=== PATIENT | male | born 2000 | race Caucasian/White ===

== ENCOUNTER 2025-06-28 15:54 | Emergency (ER) | payer BC, SELFPAY ==
[2025-06-28 15:57] VITALS: BP 124/79; PULSE 70; RESP 15; TEMP 36.8; O2SAT 98; BMI 28.8
--- NOTE | 2025-06-28 16:15 | EDS_ITS ---
HPI History of Present Illness Chief Complaint: Other, Pain/Inj Informant: patient Onset/Context/Timing Onset: Today Context: Sudden Onset Timing: Continuous Quality: Sharp, burning Location: Left side of the neck Worsened by: Turning his head to the left and looking up Relieved by: Nothing Narrative Narrative: Patient presents with neck pain that began today. Patient states that he woke up with pain in the left neck. Patient describes it as sharp and burning. Pat ient denies any trauma or injury. Patient denies any lifting or exertion yesterday. Patient states that his pain is worse when he turns his head to the left and when he looks up. Patient states nothing makes it better. Patient denies any radiation of the pain. Patient denies any paresthesias or weakness. Patient does admit to a mild headache. PFSH PFSH Medical History no medical history no medical history Home Medications ?Medication ?Instructions ?Recorded ?Last Taken ?Type cyclobenzaprine 10 mg tablet 10 mg PO QHS PRN PRN Musc le Spasm 06/28/25 Unknown Rx #10 TABLETS naproxen 500 mg tablet 500 mg PO BID PRN #20 tabs 0 06/28/25 Unknown Rx Allergy/AdvReac Type Severity Reaction Status Date / Time Penicillins Allergy Severe Anaphylaxis Verified 06/28/25 15:56 Surgical History no surgical history no surgical history Social History (Updated 06/28/25 @ 16:[address] Juan Juares, DO) Smoking Status: Current every day smoker tobacco type: cigarettes alcohol intake: current ROS ROS ED Constitutional Constitutional ED: Denies chills or fever(s) Eyes Eyes: Denies blurry vision or change in vision ENT ENT ED: Denies rhinorrhea or sore throat Cardiovascular Cardiovascular: Denies chest pain or palpitations Respiratory/Chest Respiratory/Chest: Denies cough or dyspnea Gastrointestinal Gastrointestinal: Denies nausea or vomiting Genitourinary Genitourinary ED: Denies dysuria or hematuria Musculoskeletal Musculoskeletal: Reports neck pain; Denies back pain Integumentary Denies abscess or rash Neurologic Neurologic: Reports headache(s); Denies weakness Allergic/Immunologic Allergic/Immunologic ED: Denies mouth swelling or urticaria EXAM Physical Exam Const Vital Signs: 06/28/25 15:57 06/28/25 17:06 Temperature 98.3 F Temperature Source Oral Pulse Rate 70 Respiratory Rate 15 Respiratory Effort Normal Respiratory Pattern Normal Blood Pressure 124/79 H Blood Pressure Mean 94 Pulse Ox 98 Oxygen Delivery Method Room Air Positive well nourished and well developed General Appearance ED: well developed and NAD HEENT Reports moist mucous membranes Neck Neck Narrative: There is tenderness and spasm left cervical paraspinal muscles. No midline pain. There is no no bony crepitus or step-off noted. Range of motion is limited in all motions of the cervical spine secondary to pain. General: tenderness Resp normal respiratory effort and clear to auscultation bilaterally Cardio regular rate and regular rhythm Neuro oriented x3, CN's II-XII intact bilaterally and no sensory deficits noted Sensorium / Orientation: alert Motor Exam: strength 5/5 throughout Psych mental status grossly normal MDM MDM MDM Narrative Medical decision making narrative: Differential includes torticollis, cervical strain, cervical radiculopathy, cervical spondylolisthesis. X-rays of the cervical spine will be obtained to assess for spondylolisthesis and degenerative arthritis. Radiography Diagnostic Testing: Clinical Impression(s) from Imaging Studies Cervical Spine X-Ray 06/28/25 17:20 IMPRESSION: NEGATIVE CERVICAL SPINE. Reading Location: [facility] X-rays of the cervical spine were obtained. There are 3 views. On my independent interpretation, there is no acute fracture or spondylolisthesis. There are no degenerative changes noted. Radiologist also interpreted the x- rays and agrees. Treatment and Re-Evaluation :: Patient was given a dose of [place] here. Patient was advised of this findings. Patient was given prescriptions for Naprosyn and Flexeril. Patient was instructed to use ice to the area. Patient was instructed to follow-up with his primary care physician in 5 to 7 days. Patient understood and was agreeable with the plan. All questions were answered. Discharge Plan Triage Chief Complaint: Other, Pain/Inj ED Provider: Juan Juares Dx/Rx/DC Orders Clinical Impression: Acute cervical myofascial strain, Tobacco use Instructions: ED Neck Sprain or Strain Prescriptions: New cyclobenzaprine 10 mg tablet 10 mg PO QHS PRN PRN (Reason: Muscle Spasm) Qty: 10 0RF naproxen 500 mg tablet 500 mg PO BID PRN Qty: 20 0RF Primary Care Provider: Care Physician,No Primary Referrals: Juan Spangler MD [Med Staff - [employer]] - 5-7 Days Care Physician,No Primary [Primary Care Provider] - Print Language: Amharic Disposition Disposition: Home, Self Care
[2025-06-28] MEDS: HYDROcodone Bitartrate/Apap 5/325 Tablet PO (17:00)
--- OUTSIDE RECORDS SUMMARY | 2025-06-28 17:13 | XMS RPT_ITS | CCD ---
Author Organization [facility] Care Team Providers Care Attending Urologist Name Role Phone RUTH KELLY Unavailable Unavailable MALENA MILLARD Unavailable Unavailable MIRANDA, KELLY Unavailable Unavailable LITKARIE DON Unavailable Unavailable MIRANDA, KELLY Unavailable Unavailable REFERRED, SELF Unavailable Unavailable MIRANDA, KELLY Unavailable Unavailable MIRANDA, KELLY Unavailable Unavailable KARINA SMITH Unavailable Unavailable LIONEL HODGE Unavailable Unavailable REFERRED, SELF Unavailable Unavailable MIRANDA, KELLY Unavailable Unavailable Unavailable Primary Care Provider Unavailabl e Unavailable Primary Care Provider Unavailabl e PHYSICIAN, PATIENT UNSURE Primary Care TYRONE Duran MD Attending Unavailable Unavailable Primary Care Provider Unavailabl e HEYDI, ELADIA Referring Unavailable HEYDI, ELADIA Referring Unavailable HEYDI, ELADIA Referring Unavailable Unavailable Primary Care Provider Unavailabl e SALGIA, SCOTT Referring Unavailable SALGIA, SCOTT Attending Unavailable [facility] Primary Care Unavailable RENETTA GREGORY Attending Unavailable Unavailable Primary Care Provider Unavailabl e Karina Sheriff Jr Attending Unavailable Karina Sheriff Jr Referring Unavailable Karina Sheriff Jr, DO Unavailable Unavailabl e Allergies Allergy Classification Reported Allergen(s) Allergy Type Date of Onset Reaction(s) Facility Penicillins (antibiotic) (1 source) Amoxicillin Drug Allergy 05-23-2024 [facility] (10 sources) amoxicillin; Translations: [AMOXICILLIN] Drug Allergy 06-13-2019 Bobby Quiros [facility] Repository Medications Current Medications Medication Drug Class(es) Dates Sig (Normalized) Sig (Original) ketorolac tromethamine 5 mg/ml ophthalmic solution (1 source) Nonsteroidal Anti-inflammatory Drug, Cyclooxygenase Inhibitor Start: 02-16-2025 take 1 drop(s) into the eye(s) four times daily ketorolac 0.5 % eye drops instill 1 drop by ophthalmic route 4 times every day into left eye 0.25 MG - Active ofloxacin 3 mg/ml ophthalmic solution (1 source) Quinolone Antimicrobial Start: 02-16-2025 take 1 drop(s) into the eye(s) four times daily Ocuflox 0.3 % eye drops apply 1 drop by ophthalmic route 4 times every day into left eye 1 drop - Active Completed/Discontinued Medications Medication Drug Class(es) Dates Sig (Normalized) Sig (Original) erythromycin 0.005 mg/mg ophthalmic ointment (4 sources) Macrolide, Macrolide Antimicrobial Start: 08-04-2021 End: 08-04-2021 erythromycin (ROMYCIN) ophthalmic ointment Start: 08-04-2021 End: 08-04-2021 erythromycin (ROMYCIN) 5 MG/ GM ophthalmic ointment Start: 08-04-2021 End: 08-14-2021 apply 1 dose into the eye(s) four times daily erythromycin (ROMYCIN) 5 MG/GM ophthalmic ointment Please apply 1/4inch strip to eye four times a day for 5 days to right eye 1 each 0 08/04/2021 08/14/2021 Active End: 02-16-2025 erythromycin 5 mg/gram (0.5 %) eye ointment apply (1CM) by ophthalmic route 3 times every day ribbon into the lower conjunctival sac(s) in the affected eye(s) 1 CM - No Longer Active 50 ml sodium chloride 9 mg/ml injection (2 sources) Start: 05-22-2024 End: 05-22-2024 1,000 mL, IntraVENous, at 1,000 mL/hr, Administer over 1 Hours, Once, On [facility] 05/22/24 at 2125, For 1 dose tetracaine hydrochloride 5 mg/ml ophthalmic solution (1 source) Padmini Local Anesthetic Start: 08-04-2021 End: 08-04-2021 tetracaine (TETRAVISC) 0.5 % ophthalmic solution 2 drop Problems Active Problems Problem Classification Problem Date Documented Da te Episodic/Chronic Acquired foot deformities (4 sources) Hallux valgus; Translations: [Hallux valgus (acquired), right foot] Onset: 06-16-2019 06-16-2019 Chronic Other injuries and conditions due to external causes (1 source) Foreign body in cornea, left eye, initial encounter; Translations: [Foreign body in cornea, left eye, initial encounter] Onset: 02-14-2025 Episodic Substance-related disorders (4 sources) Hallucinogen abuse; 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, uncomplicated] Onset: 05-22-2024 05-23-2024 Chronic Superficial injury; contusion (9 sources) Abrasion of cornea of right eye; Translations: [Injury of conjunctiva and corneal abrasion without foreign body, right eye, initial encounter] Onset: 05-07-2023 Episodic Past or Other Problems Problem Classification Problem Date Documented Da te Episodic/Chronic Acquired foot deformities (4 sources) Talipes planus; Translations: [Flat foot [pes planus] (acquired), unspecified foot] Onset: 06-16-2019 06-16-2019 Episodic Other connective tissue disease (3 sources) Muscle pain; Translations: [Myalgia, other site] Onset: 01-31-2024 01-31-2024 Episodic Other connective tissue disease (1 source) Myalgia, other site; Translations: [Myalgia, other site] Onset: 01-31-2024 Episodic Other non-traumatic joint disorders (4 sources) Sesamoiditis; Translations: [Other specified joint disorders, unspecified joint] Onset: 06-16-2019 06-16-2019 Episodic Spondylosis; intervertebral disc disorders; other back problems (8 sources) Neck pain; Translations: [Cervicalgia] Onset: 01-31-2024 01-31-2024 Episodic Unclassified (2 sources) Foreign body in cornea, left eye, initial encounter; Translations: [Foreign body in cornea, left eye, initial encounter] Onset: 02-16-2025 Unclassified (1 source) ER follow up foreign body (chief complaint) foreign body (chief complaint) Onset: 02-16-2025 Results Test Name Value Interpretation Reference Range Facility ED PROV NOTEon 02-14-2025 ED PROV NOTE HNO ID: [id number] Author: MERLY MCDONALD APRN.IRIS Service: ? Author Type: Nurse Practitioner Type: ED Provider Notes Filed: 02/15/2025 14:12 Note Text: ED Provider Note Patient Name: Augusto Rebolledo : 2000 SERVICE DATE: 02/14/25 History Patient presents with: Eye(s) Red Eye: Left eye redness starting yesterday, states excessive tearing. This is a 24-year-old male that presents emergency department with left eye irritation. Patient states it started approximately 2 days ago. He has conjunctival redness with frequent tearing. He now has some upper lid swelling. He denies any known foreign body. He denies recent cold symptoms. He does not wear glasses or contacts. 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 He has no other complaints today. No past medical history on file. No past surgical history on file. FAMILY HISTORY Problem Relation Age of Onset Hypertension Mother Arthritis Father Social History Tobacco Use Smoking status: Every Day Current packs/day: 0.50 Types: Cigarettes Smokeless tobacco: Never Vaping Use Vaping status: Never Used Substance and Sexual Activity Alcohol use: Not Currently Drug use: Not Currently Sexual activity: Yes ALLERGIES Allergen Reactions Amoxicillin Hives Review of Systems Constitutional: Negative. HENT: Negative. Eyes: Positive for discharge and redness. Respiratory: Negative. Cardiovascular: Negative. Musculoskeletal: Negative. Skin: Negative. Neurological: Negative. Physical Exam Vitals [02/14/25 1911] BP Pulse Temp Temp src Resp SpO2 Weight Height 122/75 83 36.7 ?C (98.1 ?F) Temporal 16 98 % 86.2 kg (190 lb) -- Physical Exam Vitals and nursing note reviewed. Constitutional: Appearance: Normal appearance. HENT: Head: Normocephalic and atraumatic. Eyes: General: Left eye: Discharge present. Extraocular Movements: Extraocular movements intact. Pupils: Pupils are equal, round, and reactive to light. Comments: Left eye conjunctival erythema, minor upper lid edema. Punctate metal fb at 3 o'clock. Cardiovascular: Rate and Rhythm: Normal rate. Pulmonary: Effort: Pulmonary effort is normal. Musculoskeletal: General: Normal range of motion. Skin: General: Skin is warm and dry. Capillary Refill: Capillary refill takes less than 2 seconds. Neurological: General: No focal deficit present. Mental Status: He is alert and oriented to person, place, and time. Diagnostic Testing ED Labs Ordered and Reviewed - No data to display Procedures ED Course / Clinical Impression Clinical Impressions as of 02/15/25 1404 Foreign body in cornea, left eye, initial encounter MDM / Disposition / Plan Patient presents with left eye irritation. He is in no acute distress. Vital signs unremarkable. Pupils equal round reactive to light and accommodation. Lt conjunctiva erythematous. Extraocular movements intact. Minor upper lid swelling on the left. Punctate metal foreign body at 3:00. Clear drainage on the left. Exam otherwise unremarkable. Tetracaine and fluorescein utilized to exam the eye. Patient did not tolerate exam well unrelated to pain. Attempted cotton swab removal of foreign object without success. Patient started on erythromycin ointment. He was advised on follow-up on Sunday with ophthalmology for removal and reevaluation. Patient was advised on return precautions. Patient was discharged home. Impression left corneal foreign body. Differential Diagnoses - left corneal fb is more likely for the following reason(s): suggested by HANDP Disposition The patient was discharged. Counseled patient regarding suspected diagnosis. SIGNATURE: Merly Mcdonald APRN.ORACLE SOFTWARE ENGINEER - MERLY MCDONALD 02/15/25 1412 Normal [facility] ED Nursing Noteon 05-23-2024 ED Nursing Note Patient AXO x 4. Res pirations even and unlabored. No acute distress noted. Verbalized understanding of discharge paperwork. Steady gait with ambulation. Discharged with girlfriend. Yvette Dee RN 05/23/24 0106 Normal [facility] ED Nursing Note Patient awake and ta lking to this nurse. Provided gowns. Patient ambulatory to restroom with steady gait. Yvette Dee RN 05/23/24 0003 Normal [facility] ED Nursing Noteon 05-22-2024 ED Nursing Note Patient incontinent of urine again. This RN and Rosy, medic at bedside to change patient. Patient clean and dry. Patient will not remain still to obtain BP. Yvette Dee RN 05/22/24 2317 Normal [facility] ED Nursing Note Patient respirations even and unlabored. No acute distress noted. Side rails up x2 for safety. Visitor at bedside. Yvette Dee RN 05/22/24 3567 Normal [facility] ED Nursing Note Patient pulled IV ou t. Yvette Dee RN 05/22/24 2243 [facility] ED Nursing Note Patient continues to roll around in bed, removing self from monitor and bending arm. IVF unable to infuse d/t patient bending arm. Dr. Ortiz notified. Yvette Dee RN 05/22/24 2241 Normal [facility] ED Nursing Note Patient incontinent of urine. Patient changed into gown and complete bed change done. Yvette Dee RN 05/22/24 2230 Normal [facility] ED Nursing Note Dr. Guzman at bedside. Yvette Dee RN 05/22/24 2133 Normal [facility] ED Provider Noteon ED Provider Note EMERGENCY DEPARTMENT ENCOUNTER Pt Name: Augusto Rebolledo Birthdate 2000 Date of evaluation: 05/22/2024 ED Provider: Dinora Ortiz MD CHIEF COMPLAINT Chief Complaint Patient presents with Ingestion Pt sts I feel like I'm going to . Pt sts nothing else and does not respond to stimuli. Girlfriend sts pt took edible mushrooms, ukn how much, approx 1hr ago. HISTORY OF PRESENT ILLNESS (Location/Symptom, Timing/Onset, Context/Setting, Quality, Duration, Modifying Factors, Severity) Note limiting factors. I wore appropriate PPE for the entirety of this encounter. HPI Augusto Rebolledo is a 23 y.o. who presents to the emergency department after eating edible mushrooms. Triage note, patient stated I think I am going to he entered the emergency department. Patient is no longer speaking or responding to stimuli, therefore unable to obtain any further history. Girlfriend is at bedside and states that the mushrooms were likely ingested approximately an hour to an hour and a half prior to arrival. She does not know how much she states she was not there when he ingested, however she notes he ingested prior to picking her up for dinner. Nursing Notes were reviewed. Limitations to history: Intoxication Outside historians: None REVIEW OF SYSTEMS Review of Systems Unable to perform ROS: Other (intoxication, not participating) PAST MEDICAL HISTORY History reviewed. No pertinent past medical history. SURGICAL HISTORY History reviewed. No pertinent surgical history. CURRENT MEDICATIONS Previous Medications No medications on file ALLERGIES Patient has no allergy information on record. FAMILY HISTORY Family History Problem Relation Name Age of Onset No Known Problems Father No Known Problems Mother SOCIAL HISTORY Social History Socioeconomic History Marital status: Single Tobacco Use Smoking status: Never Smokeless tobacco: Never Substance and Sexual Activity Alcohol use: Never SCREENINGS PHYSICAL EXAM ED Triage Vitals [05/22/24 2103] Temp Heart Rate Resp BP 36.8 ?C (98.2 ?F) 110 22 (!) 175/95 SpO2 Temp Source Heart Rate Source Patient Position 100 % Axillary Monitor Lying BP Location FiO2 (%) Right arm -- Physical Exam Vitals and nursing note reviewed. Constitutional: Comments: Staring into space, not responding to stimuli HENT: Head: Normocephalic and atraumatic. Nose: Nose normal. Mouth/Throat: Mouth: Mucous membranes are moist. Eyes: Extraocular Movements: Extraocular movements intact. Conjunctiva/sclera: Conjunctivae normal. Right eye: Right conjunctiva is not injected. Left eye: Left conjunctiva is not injected. Comments: Pupils dilated bilaterally Cardiovascular: Rate and Rhythm: Regular rhythm. Tachycardia present. Heart sounds: Normal heart sounds. Pulmonary: Effort: Pulmonary effort is normal. Breath sounds: Normal breath sounds. Abdominal: Palpations: Abdomen is soft. Musculoskeletal: General: Normal range of motion. Cervical back: Normal range of motion. Skin: General: Skin is warm. Neurological: General: No focal deficit present. Mental Status: He is alert. Comments: Unable to fully test neurological status as patient is not responding to stimuli or following commands; he is moving all 4 extremities equally. DIAGNOSTIC RESULTS RADIOLOGY (Per Emergency Physician): Interpretation per the Radiologist below, if available at the time of this note: No orders to display LABS: Labs Reviewed POCT GLUCOSE METER UNSOLICITED RESULTS - Normal Result Value Glucose 96 Narrative: Performed by: [facility], [address] [place] [address] CLIA ID: [id number] All other labs were within normal range or not returned as of this dictation. EMERGENCY DEPARTMENT COURSE and DIFFERENTIAL DIAGNOSIS/MDM: Vitals: Vitals: 05/22/24 2103 05/22/24 2317 BP: (!) 175/95 BP Location: Right arm Patient Position: Lying Pulse: 110 94 Resp: 22 18 Temp: 36.8 ?C (98.2 ?F) TempSrc: Axillary SpO2: 100% 100% Weight: 93 kg (205 lb) Height: 1.854 m (6' 1) The patient presented with a chief complaint of mushroom ingestion. POCT glucose obtained due to altered mental status. Was 96. Attempted to give patient IV fluids, however his altered state he was continuing to pull out his IV. Patient was observed in the emergency department for 3 and half hours. He woke up, ambulated to the restroom, tolerated p.o., and is back at baseline mental status. Patient is safe for discharge at this time. Return precautions given to the ED. He expressed understanding and agreement was discharged in stable condition. External records reviewed: none Diagnostics interpreted by me: none Discussions with other clinicians: none Chronic conditions impacting care: none Social determinants of health affecting care: none ED Medications managed: Medications sodium chloride 0.9 % b (more content not included)... [facility] ED Provider Note Emergency Department Encounter [facility] EMERGENCY DEPT Patient: Augusto Rebolledo : 2000 Date of Evaluation: 05/22/2024 ED Supervising Physician: Renetta Gregory MD I independently examined and evaluated Augusto Rebolledo. In brief, Augusto Rebolledo is a 23 y.o. male with unknown past medical history that presents to the emergency department for evaluation for bizarre behavior. According to girlfriend who is at bedside patient reported taking mushrooms earlier in the evening. She states that the patient increasingly became lethargic and sleepy. She states the result she brought him to the emergency department for evaluation. Girlfriend states she is not there when he ingested the mushrooms. She notes that he came to be To go out after dinner and was intoxicated. Patient states he does not remember what happened to him. He however denies chest pain, shortness of breath, abdominal pain or nausea and vomiting. Patient is hard to arouse and rouses to sternal rubs. When patient however rouses is able to communicate coherently and is alert and oriented x 4. ED Triage Vitals [05/22/242102] Temp Heart Rate Resp BP 36.8 ?C (98.2 ?F) 110 22 (!) 175/95 SpO2 Temp Source Heart Rate Source Patient Position 100 % Axillary Monitor Lying BP Location FiO2 (%) Right arm -- Focused exam: [id number] in no acute distress. Patient drowsy and hard to arouse but when he arouses he is alert and oriented X 3. Lungs clear to auscultation bilaterally with no wheezes or crackles appreciated. Heart rate and rhythm regular with no murmurs. Abdomen soft nontender nondistended with positive bowel sounds. No edema appreciated on the lower extremities bilaterally. Patient with no suicidal or homicidal ideation. Brief ED course/MDM: No orders to display Labs Reviewed POCT GLUCOSE METER UNSOLICITED RESULTS - Normal Result Value Glucose 96 Narrative: Performed by: [facility], [address] [place], [place] [id number] CLIA ID: [id number] Diagnoses as of 05/23/24 0435 Hallucinogenic mushrooms use disorder, mild (CMS/HCC) (HCC) Patient presenting for evaluation for increased drowsiness after allegedly consuming mushrooms. Given presentation patient received IV fluids in the department. Patient with no hypoglycemia. Patient observed in the department for 4 hours. Apparently for 4 hours patient fully awake alert and oriented. Able to state that he took hallucinogenic mushrooms. Denies any other substance abuse. Patient with no hypoxia. Ambulates without difficulty. Discussed with patient discharge home. Patient with sober ride as girlfriend is still at bedside. Discharged in stable condition for patient follow-up. All diagnostic, treatment, and disposition decisions were made by myself in conjunction with the Resident. I also supervised lopez portions of any procedures performed by the Resident. For all further details of the patient's emergency department visit, please see their documentation. (Please note that portions of this note may have been completed with a voice recognition program. Efforts were made to edit the dictations but occasionally words are mis-transcribed.) MD Renetta Curtis MD 05/23/24 0442 Normal [facility] - Chemistry and C hemistry - challengeon 05-22-2024 Glucose [Mass/Vol] 96 mg/dL 70 - 100 mg/dL [facility] No Panel Informationon 05-22 Interpretation and review of laboratory results Normal [facility] Performed by: [facility], [address] [place] [id number] CLIA ID: [id number] [facility] CNOVon 05-17-2023 CNOV Office Visit (CCWRNC ) AUGUSTO REBOLLEDO ([id number]) 1 M Date Time Provider Department 05/17/23 4:00 PM [facility] During your visit today, we recorded the following information about you: Referring Provider: ELADIA SOLIZ [[id number]] Allergies As of Date: 05/17/2023 Noted Allergy Reaction AMOXICILLIN 06/13/2019 4 - Hives Date Reviewed: 03/11/2023 Reviewed by: Wes Vega RN - Fully Assessed Reason for Visit: Fall [218] Primary Visit Diagnosis:Contusion of right front wall of thorax, initial encounter [S20.211A] Other Visit Diagnoses:Contusion of right knee, initial encounter [S80.01XA] Contusion of right hip, initial encounter [S70.01XA] Problem List As Of Date 05/17/2023 Noted Resolved Sesamoiditis [M25.80] 06/16/2019 Valgus deformity of both great toes [M20.11, M2*06/16/2019 Flat foot [M21.40] 06/16/2019 Encounter Status:Closed by ROB ROCHE on 07/11/23 [facility] 05[facility]2023 CN Office Visit (CCWRNC ) AUGUSTO REBOLLEDO ([id number]) 1 M Date Time Provider Department 05/07/23 11:30 AM [facility] During your visit today, we recorded the following information about you: Referring Provider: ELADIA SOLIZ [[id number]] Allergies As of Date: 05/07/2023 Noted Allergy Reaction AMOXICILLIN 06/13/2019 4 - Hives Date Reviewed: 03/11/2023 Reviewed by: Wes Vega RN - Fully Assessed Reason for Visit: Knee Pain [132] Pain [78] Primary Visit Diagnosis:Contusion of front wall of thorax, initial encounter [S20.219A] Other Visit Diagnoses:Contusion of right front wall of thorax, initial encounter [S20.211A] Contusion of right knee, initial encounter [S80.01XA] Contusion of right hip, initial encounter [S70.01XA] Order(s):XR RIBS/CHEST 3V AP RIB/OBLS/CXR RIGHT [[id number]] Order #: [id number] FUTURE Problem List As Of Date 05/07/2023 Noted Resolved Sesamoiditis [M25.80] 06/16/2019 Valgus deformity of both great toes [M20.11, M2*06/16/2019 Flat foot [M21.40] 06/16/2019 Encounter Status:Closed by RODGER RAY on 07/25/23 [facility] XR RIB/CHST 3V AP RIB/OBL/CH ST Dash 05-07-2023 XR RIB/CHST 3V AP RIB/OBL/CHST R * * *Final Report* * * DATE OF EXAM: May 07 2023 12:27PM [id number] [id number] - XR RIB/CHST 3V AP RIB/OBL/CHST R / PROCEDURE REASON: Contusion of front wall of thorax, initial encounter * * * * Physician Interpretation * * * * XR RIB/CHST 3V AP RIB/OBL/CHST R Ordering Physician: ELADIA SOLIZ RIGHT RIB SERIES 5 VIEWS Clinical Statement: Contusion of right pneumothorax, initial encounter. FINDINGS: No pneumothorax. No rib fractures. The osseous structures are intact. IMPRESSION: No acute osseous abnormality. Metalsmith Apprentice: [facility] Transcribe Date/Time: May 07 2023 1:09P Dictated by : MARY CALVO MD This examination was interpreted and the report reviewed and electronically signed by: MARY CALVO MD on May 07 2023 1:10PM EST [id number] [facility] XR RIBS/CHEST 3V AP RIB/OBLS /CXR RIGHTon 05-07-2023 [facility] XR Ribs - right Views and Ch est PAon 05-07-2023 IMPRESSION: No acute osseous abnormality. Metalsmith Apprentice: [facility] Transcribe Date/Time: May 07 2023 1:09P Dictated by : MARY CALVO MD This examination was interpreted and the report reviewed and electronically signed by: MARY CALVO MD on May 07 2023 1:10PM EST [facility] RADIOLOGY * * *Final Report* * * DATE OF EXAM: May 07 2023 12:27PM [id number] [id number] - XR RIB/CHST 3V AP RIB/OBL/CHST R / PROCEDURE REASON: Contusion of front wall of thorax, initial encounter * * * * Physician Interpretation * * * * XR RIB/CHST 3V AP RIB/OBL/CHST R Ordering Physician: ELADIA SOLIZ RIGHT RIB SERIES 5 VIEWS Clinical Statement: Contusion of right pneumothorax, initial encounter. FINDINGS: No pneumothorax. No rib fractures. The osseous structures are intact. [facility] RADIOLOGY Provider, Deonte [facility] - 05/07/2023 * * *Final Report* * * DATE OF EXAM: May 07 2023 12:27PM RNX [id number] - XR RIB/CHST 3V AP RIB/OBL/CHST R / PROCEDURE REASON: Contusion of front wall of thorax, initial encounter * * * * Physician Interpretation * * * * XR RIB/CHST 3V AP RIB/OBL/CHST R Ordering Physician: ELADIA SOLIZ RIGHT RIB SERIES 5 VIEWS Clinical Statement: Contusion of right pneumothorax, initial encounter. FINDINGS: No pneumothorax. No rib fractures. The osseous structures are intact. IMPRESSION IMPRESSION: No acute osseous abnormality. Metalsmith Apprentice[facility] Transcribe Date/Time: May 07 2023 1:09P Dictated by : MARY CALVO MD This examination was interpreted and the report reviewed and electronically signed by: MARY CALVO MD on May 07 2023 1:10PM EST [facility] Radiology Study observation (narrative) [facility] XR Ribs - right Views and Ch est PAOrdered By: [facility] Provider on 05-07-2023 [facility] [facility] .Auto Diffon 05-02-2023 Basophil, Absolute 0.0 10 3/mcL Normal 0.0-0.3 [facility] ([place]) Comment on above: Performed By: #### ALC, CBCFAUSTINA ANEU, MDW ####[address] [address] Basophils/100 WBC (Bld) 0.2 % Normal 0.0-2.5 [facility] ([place]) Comment on above: Performed By: #### ALC, CBC, WALTER WEEMS MDW ####[address] [address] Eosinophil, Absolute 0.1 10 3/mcL Normal 0.0-0.7 [facility] ([place]) Comment on above: Performed By: #### ALC, CBCFAUSTINA ANEU, MDW ####[address] [address] Eosinophils/100 WBC (Bld) 0.6 % Normal 0.0-6.0 [facility] ([place]) Comment on above: Performed By: #### ALC, CBCFAUSTINA ANEU, MDW ####[address] [address] Lymphocyte, Absolute 1.3 10 3/mcL Normal 0.9-4.3 [facility] ([place]) Comment on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 swelling.ProceduresMDMED Course:Diagnosis' considered: right foot and ankle injury, fracture vs contusion vsstrain,Labs/Radiology:X-Ray Ankle 3 or More Views RightFinal ResultImpression:Right foot: 3 views of the right foot demonstrate no evidence of fracture ordislocation. Thefirst metatarsal medial sesamoid bone is bipartite, normal variant.Right ankle: 3 views demonstrate soft tissue swelling greatest laterally. Themortise isintact. No evidence of fracture, dislocation, or osteochondritis dissecans. Thecorticalirregularity of the superior navicular is felt to be normal variation.This report has been created using voice recognition software. It may containminor errorswhich are inherent in voice recognition technologyX-Ray Foot 3 or More Views RightFinal ResultImpression:Right foot: 3 views of the right foot demonstrate no evidence of fracture ordislocation. Thefirst metatarsal medial sesamoid bone is bipartite, normal variant.Right ankle: 3 views demonstrate soft tissue swelling greatest laterally. Themortise isintact. No evidence of fracture, dislocation, or osteochondritis dissecans. Thecorticalirregularity of the superior navicular is felt to be normal variation.This report has been created using voice recognition software. It may containminor errorswhich are inherent in voice recognition technologyTreatment/Reassessment : Ibuprofen given for pain , Reviewed above noted xrayresults with family. pneumatic boot applied Reviewed supportive measures,expected course and s/s of concern with parent. Parent verbalized understandingof instructions and all questions were answered. F/U with PCP in 5 days if notimprovedDiagnosis to highest level of medical certainty/plan1. Injury of right ankle and foot, initial encounter Normal [facility] FOOT 3 OR MORE VIEWS RIGHTon 10-27-2017 FOOT 3 OR MORE VIEWS RIGHT Clinical history: Injury. Pain.Impression:Right foot: 3 views of the right foot demonstrate no evidence of fracture ordislocation. The first metatarsal medial sesamoid bone is bipartite, normalvariant.Right ankle: 3 views demonstrate soft tissue swelling greatest laterally. Themortise is intact. No evidence of fracture, dislocation, or osteochondritisdissecans. The cortical irregularity of the superior navicular is felt to benormal variation.This report has been created using voice recognition software. It may containminor errors which are inherent in voice recognition technologySigned by: Dr. 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 No known inciting event. Patient has pain with walking and also has apopping sensation when walking long distances. No numbness or tingling. No priorinjuries.Has not continued to practice since it happened.Icing and swelling improved.No medications today.The history is provided by the patient and a parent.Review of SystemsConstitutional: Negative for fever.HENT: Negative for congestion and rhinorrhea.Respiratory: Negative for cough.Gastrointestinal: Negative for vomiting.Musculoskeletal: Positive for arthralgias and gait problem.Skin: Negative for rash.Past Medical History:Diagnosis Date ADHD (attention deficit hyperactivity disorder)History reviewed. No pertinent surgical history.Pediatric HistoryPatient Guardian Status Mother: Shelton Rebolledo Roger Father: GopiEladia IIOther Topics Concern Not on fileSocial History NarrativePhysical ExamConstitutional: He appears well-developed and well-nourished. No distress.HENT:Mouth/Throat: Oropharynx is clear and moist. No oropharyngeal exudate.Eyes: Conjunctivae are normal. Pupils are equal, round, and reactive to light.Neck: Neck supple.Cardiovascular: Normal rate.Pulmonary/Chest: Effort normal and breath sounds normal.Musculoskeletal: Right knee: He exhibits decreased range of motion (prefers to keep knee inslightly flexed position. (Can flex but painful to fully extend)). He exhibitsno swelling, no ecchymosis, no deformity, no laceration and no erythema.Tenderness (medial side of knee) found. Right ankle: He exhibits normal range of motion. No tenderness.Neurological: He is alert.Skin: Skin is warm. He is not diaphoretic.Nursing note and vitals reviewed.ProceduresMDMED Course:Diagnosis' considered: sprain, contusion, fractureLabs/Radiology:X-Ray Knee 3 Views RightFinal ResultIMPRESSION:Normal radiographic examination of the knee.This report has been created using voice recognition software. It may containminor errorswhich are inherent in voice recognition technologyConsults: No orders of the defined types were placed in this encounter.Medical Record/Transferring Institution Record:Treatment/Reassessment: Non toxic appearing. Dose of motrin given for pain.Xrays obtained and unremarkable. Advised to continue to rest, ice, elevate andcompress with DIAZ bandage. Advised to use crutches (have at home) for next fewdays up to one week as well. Follow up with orthopedics if pain continues to bepresent despite using crutches and RICE. At-home management instructions given.Family expressed understanding of home management instructions and returnprecautions. Discharged home in stable condition.Medical Decision MakingDiagnosis to highest level of medical certainty/plan1. Acute pain of right knee Malena Millard MD Normal [facility] KNEE 3 VIEWS RIGHTon 017 KNEE 3 VIEWS RIGHT CLINICAL HISTORY: pain medially and over inferior patella poleTECHNIQUE: Three views of the right knee.NUMBER OF IMAGES: 3COMPARISON: NoneFINDINGS:There is no visible fracture or other osseous abnormality. Alignment is normal.There is no visible joint effusion or other soft tissue abnormality.IMPRESSION:Normal radiographic examination of the knee.This report has been created using voice recognition software. It may containminor errors which are inherent in voice recognition technologySigned by: Dr. Stefan Dong at 08/24/2017 12:19 Normal [facility] Vital Signs Date Time Vital Sign Value Performing Clinician Markus farris 05-23-2024 01:02-0400 Diastolic blood pressure 77 mm[Hg] Renetta Gregory MD Work Phone: [facility] 05-23-2024 01:02-0400 Heart rate 73 /min Renetta Gregory MD Work Phone: [facility] 05-23-2024 01:02-0400 Respiratory rate 18 /min Renetta Gregory MD Work Phone: [facility] 05-23-2024 01:02-0400 SaO2% (BldA) [Mass fraction] 98 % Renetta Gregory MD Work Phone: [facility] 05-23-2024 01:02-0400 Systolic blood pressure 138 mm[Hg] Renetta Gregory MD Work Phone: [facility] 05-23-2024 01:00-0400 Body height 180.3 cm Renetta Gregory MD Work Phone: [facility] [employer] 05-23-2024 01:00-0400 Body mass index (BMI) [Ratio] 28.59 kg/m2 Renetta Gregory MD Work Phone: [facility] 05-23-2024 01:00-0400 Body weight 92.99 kg Renetta Gregory MD Work Phone: [facility] [employer] 05-22-2024 21:03-0400 Body temperature 98.2 [degF] Renetta Gregory MD Work Phone: [facility] [employer] 08-04-2021 20:22-0400 Body temperature 97.11 [degF] [facility] Work Phone: 08-04-2021 20:22-0400 Body weight 86.18 kg [employer] Work Phone: 08-04-2021 20:22-0400 Diastolic blood pressure 82 mm[Hg] [employer] Work Phone: 08-04-2021 20:22-0400 Heart rate 88 /min [employer] Work Phone: 08-04-2021 20:22-0400 Respiratory rate 16 /min [employer] Work Phone: 08-04-2021 20:22-0400 SaO2% (BldA) [Mass fraction] 100 % [facility] Work Phone: 08-04-2021 20:22-0400 Systolic blood pressure 130 mm[Hg] [employer] Work Phone: Encounters Encounter Date Encounter Type Care Provider Facility Start: 02-16-2025 End: 02-16-2025 Karina Sheriff Jr Work Phone: [facility] [place] Start: 02-16-2025 ambulatory Karina Sheriff Jr [facility] Start: 02-14-2025 End: 02-14-2025 Emergency department patient visit Facility:[facility] Start: 05-22-2024 End: 05-23-2024 Emergency department patient visit Renetta Gregory MD Work Phone: [facility] Comment on above: Hallucinogenic mushr ooms use disorder, mild (CMS/HCC) (HCC) (Primary Dx) Start: 01-31-2024 End: 01-31-2024 Subsequent hospital visit by physician Scott Oquendo Work Phone: [address] X-ray Comment on above: Cervicalgia; Pain in thoracic spine; Myalgia, other site Start: 01-31-2024 End: 01-31-2024 ambulatory SCOTT OQUENDO [facility] Start: 05-17-2023 End: 05-17-2023 ambulatory ELADIA SOLIZ Facility:[id number] Start: 05-17-2023 End: 05-17-2023 [facility] Comment on above: Contusion of right f ront wall of thorax, initial encounter (Primary Dx); Contusion of right knee, initial encounter; Contusion of right hip, initial encounter Start: 05-07-2023 End: 05-07-2023 ambulatory ELADIA SOLIZ Facility:[id number] Start: 05-07-2023 End: 05-07-2023 Subsequent hospital visit by physician Xr [facility] Work Phone: [facility] Comment on above: Contusion of front w all of thorax, initial encounter [S20.219A] Start: 05-07-2023 End: 05-07-2023 Patient encounter procedure [facility] Comment on above: Contusion of front w all of thorax, initial encounter (Primary Dx); Contusion of right front wall of thorax, initial encounter; Contusion of right knee, initial encounter; Contusion of right hip, initial encounter Start: 05-02-2023 End: 05-02-2023 Emergency department patient visit PATIENT UNSURE PHYSICIAN Facility:A Start: 10-09-2021 Patient encounter procedure Juarez Storm MD Work Phone: [facility] Start: 10-09-2021 Progress Note Juarez Storm MD Work Phone: [facility] Start: 08-04-2021 End: 08-04-2021 Emergency department patient visit [facility] Comment on above: Abrasion of right co rnea, initial encounter (Primary Dx) Start: 06-03-2018 Patient encounter LIONEL HODGE [facility] Start: 06-03-2018 End: 06-03-2018 Emergency department patient visit KELLY [facility] Start: 11-26-2017 End: 11-26-2017 Patient encounter KELLY [facility] Start: 10-27-2017 End: 10-27-2017 Emergency department patient visit KELLY MIRANDA [facility] Start: 08-24-2017 End: 08-24-2017 Emergency department patient visit KELLY [facility] Procedures Date Procedure Procedure Detail Performing Clinician Start: 02-16-2025 End: 02-16-2025 Rmvl fb xtrnl eye corneal w/slit lamp Karina Sheriff Jr Start: 05-22-2024 Glucose quantitative blood xcpt reagent strip Renetta Gregory MD Work Phone: Start: 05-07-2023 Radex ribs uni w/posteroant ch minimum 3 views Eladia Soliz PA-C Work Phone: Plan of Treatment Date Care Activity Detail Author Start: 2060 RSV Immunization age d 60 or older (1 - 1-dose 60+ series) RSV Immunization aged 60 or older (1 - 1-dose 60+ series) [facility] Start: 2050 Zoster Vaccines (1 of 2) Zoste r Vaccines (1 of 2) [facility] Start: 02-16-2025 Counseling about tob acco use Tobacco cessation counseling [facility] Start: 07-20-2024 Covid-19 Vaccine ( season) Covid-19 Vaccine ( season) [facility] Start: 07-20-2024 Influenza vaccination Influenza Vacc ine (#1) [facility] Start: 08-25-2023 DTaP/Tdap/Td Vaccine s (7 - Td or Tdap) DTaP/Tdap/Td Vaccines (7 - Td or Tdap) [facility] Start: 08-25-2023 Urine microalbumin profile DTaP,Tdap,Td Vaccine (7 - Td or Tdap) [facility] Start: 07-20-2023 COVID-19 Vaccine ( season) COVID-19 Vaccine ( season) [facility] Start: 07-20-2023 Influenza vaccination [facility] Start: 11-19-2022 DEPRESSION ASSESSMENT DEPRESSION ASS ESSMENT [facility] Start: 07-20-2022 Influenza vaccination INFLUENZ A (Season Ended) [facility] Start: 07-20-2021 Influenza vaccination Flu vaccine (# 1) [facility] Work Phone: Start: 2019 Hepatitis A Vaccines (1 of 2 - Risk 2-dose series) Hepatitis A Vaccines (1 of 2 - Risk 2-dose series) [facility] Start: 2019 Urine microalbumin profile DTAP,TDAP,TD (1 - Tdap) [facility] Start: 2018 Anxiety Screening Anxiety Screening [facility] Start: 2018 Depression Screening Depression Scre ening [facility] Start: 2018 HEPATITIS C [facility]CRE[facility] Start: 2018 Hepatitis C screening Hepatitis C [facility] Start: 2018 HIV SCREENING HIV SCREENING [facility] Start: 2018 HIV screening HIV Screening [facility] Start: 2016 Meningococcal B Vacc ine: Consider Based On Risk (1 of 2 - Patient Seeks Protection) Meningococcal B Vaccine: Consider Based On Risk (1 of 2 - Patient Seeks Protection) [facility] Start: 2016 MENINGOCOCCAL B: Consider based on risk (1 of 2 - Patient Seeks Protection) MENINGOCOCCAL B: Consider based on risk (1 of 2 - Patient Seeks Protection) [facility] Start: 2015 HPV Vaccine (1 - Mal e 3-dose series) HPV Vaccine (1 - Male 3-dose series) [facility] Start: 2015 HPV Vaccines (1 - Ma le 3-dose series) HPV Vaccines (1 - Male 3-dose series) [facility] Start: 2014 PEDS TO ADULT TRANSI TION ANNUAL ASSESSMENT PEDS TO ADULT TRANSITION ANNUAL ASSESSMENT [facility] Start: 2012 Adult depression screening assessment DEPRESSION SCREENING [facility] Start: 2012 COVID-19 Vaccine (1) COVID-19 Vaccin e (1) [facility] Work Phone: Start: 2012 PEDS TO ADULT TRANSI TION INITIAL DISCUSSION PEDS TO ADULT TRANSITION INITIAL DISCUSSION [facility] Start: 2011 HPV VACCINE (1 - Mal e 2-dose series) HPV VACCINE (1 - Male 2-dose series) [facility] Start: 2011 HPV Vaccines (1 - Ma le 2-dose series) HPV Vaccines (1 - Male 2-dose series) [facility] Start: 2009 HPV VACCINE (1 - Mal e 2-dose series) HPV VACCINE (1 - Male 2-dose series) [facility] Start: 2006 PNEUMOCOCCAL (1 - PCV) PNEUMOCOCCAL (1 - PCV) [facility] Start: 2006 Pneumococcal vaccination Pneum ococcal Vaccine (1 of 2 - PCV) [facility] Start: 2006 Pneumococcal Vaccine : Pediatrics (0 to 5 Years) and At-Risk Patients (6 to 64 Years) (1 of 2 - PCV) Pneumococcal Vaccine: Pediatrics (0 to 5 Years) and At-Risk Patients (6 to 64 Years) (1 of 2 - PCV) [facility] Start: 04-20-2006 Varicella vaccination Varicell a Vaccines (2 of 2 - 2-dose childhood series) [facility] Start: 2005 COVID-19 VACCINE (#1) COVID-19 VACCI NE (#1) [facility] Start: 06-06-2001 COVID-19 VACCINE (#1) COVID-19 VACCI NE (#1) [facility] Start: 2000 HEPATITIS B (1 of 3 - 3-dose series) HEPATITIS B (1 of 3 - 3-dose series) [facility] Start: 2000 HIV screening HIV Screening [facility] Start: 2000 Lipid panel Lipid Panel [facility] OUTSIDE PROCEDURE SCAN OUTSIDE P ROCEDURE SCAN Procedures Ordered: 01/31/2024 [facility] Comment on above: Ordered: 01/31/2024 End: 01-31-2024 XR Cervical spine 4 or 5 Views [facility] Comment on above: Once for 1 Occurrenc es starting 01/31/2024 until 01/31/2024 End: 01-31-2024 XR Thoracic spine 3 Views [facility] Work Phone: Comment on above: Once for 1 Occurrenc es starting 01/31/2024 until 01/31/2024 Immunizations Immunization Date Immunization Notes Care Provider Tina iverson 03-20-2002 varicella virus vaccine Scott Phong Work Phone: [facility] Payers Date Payer Category Payer Unknown [id number] 2023 Unknown [id number] 2023 Unknown [id number] 2023 Unknown [id number] 2022 Unknown [id number] 2022 Unknown [id number] 2000 Unknown [id number] 2000 Unknown [id number] Private Health Insurance [id number] Social History Date Type Detail Facility Tobacco smoking stat [facility] Unknown if ever smoked [facility] Work Phone: Start: 2000 Sex Assigned At Not on file S [employer] Work Phone: Start: 03-22-2022 End: 04-01-2022 Exposure to SARS-CoV-2 (event) Not sure [facility] Start: 06-13-2019 End: 05-23-2024 Tobacco smoking status [facility] Smokes tobacco daily [facility] Start: 06-13-2019 End: 2022 Cigarettes smoked current (pack per day) - Reported 0.5 [facility] Start: 06-13-2019 End: 05-23-2024 Tobacco use and exposure Smokeless tobacco non-user [facility] Start: 11-25-2019 End: 04-01-2022 Alcohol intake Ex-drinker (finding) [facility] History of tobacco use Cigarette Smoker C [facility] Start: 04-01-2022 End: [address] [facility] PHQ2 Score 0 [facility] c Tobacco smoking stat [facility] Never smoked tobacco [facility] Start: 11-17-2021 End: 05-23-2024 Alcohol intake Lifetime non-drinker (finding) [facility] Start: 02-16-2025 [facility] Start: 02-16-2025 Alcohol intake Alcohol Use Details [facility] Start: 02-16-2025 History of tobacco use Heavy c igarette smoker (20-39 cigs/day) [facility] Start: 02-16-2025 Tobacco use and exposure (observable entity) Smoking Tobacco Use Details [facility] Sex Assigned At Male [facility] Medical Equipment Procedure Code Equipment Code Equipment Origin al Text Equipment Identifier Dates fluorescein ophthalmic strip 1 mg [id number] Start: 08-04-2021 End: 08-04-2021 Clinical Notes 08-04-2021 to 02-16-2025 Note Date & Type Note Facility 02-16-2025 Evaluation note Type assessment Foreign body in corn ea, left eye, initial encounter [facility] Work Phone: 1(574) 219-887003-31-2025 History of Present illness Narrative* Encounter Date Complaint History Of Prese nt Illness foreign body ER follow up foreign body The 24 year old patient presents for ER follow up foreign body in the left eye. Patient was seen in the ER 2 days ago. They were unable to remove the foreign body. The condition is described as redness, eye pain, difficulty keeping eye open, light sensitivity. Patient was given EES olga to use 4 times a day. Patient does not remember getting anything in his eye. [facility] Work Phone: 1(967) 375-364003-31-2025 Instructions* Date Instruction Additional Infor scarlet Impression/Plan [facility] Work Phone: 1(153) 393-185107-05-2024 Emergency department Note* Yvette Dee RN - 05/23/2024 1:06 AM EDT Patient AXO x 4. Respirations even and unlabored. No acute distress noted. Verbalized understandingof discharge paperwork. Steady gait with ambulation. Discharged with girlfriend. Yvette Dee RN 05/23/24105 [id number] Note* Yvette Dee RN - 05/23/2024 1:06 AM EDT Patient AXO x 4. Respirations even and unlabored. No acute distress noted. Verbalized understandingof discharge paperwork. Steady gait with ambulation. Discharged with girlfriend. Yvette Dee RN 05/23/24105 * Yvette Dee RN - 05/23/2024 12:02 AM EDT Patient awake and talking to this nurse. Provided gowns. Patient ambulatory to restroom with steadygait. Yvette Dee RN 05/23/24 0003 * Yvette Dee RN - 05/22/2024 11:16 PM EDT Patient incontinent of urine again. This RN and Rosy, medic at bedside to change patient. Patient clean and dry. Patient will not remain still to obtain BP. Yvette Dee RN 05/22/24 2317 * Yvette Dee RN - 05/22/2024 10:47 PM EDT Patient respirations even and unlabored. No acute distress noted. Side rails up x2 for safety. Visitor at bedside. Yvette Dee RN 05/22/242246 * Yvette Dee RN - 05/22/2024 10:43 PM EDT Patient pulled IV out. Yvette Dee RN 05/22/242242 * Yvette Dee RN - 05/22/2024 10:40 PM EDT Patient continues to roll around in bed, removing self from monitor and bending arm. IVF unable to infuse d/t patient bending arm. Dr. Ortiz notified. Yvette Dee RN 05/22/242240 * Yvette Dee RN - 05/22/2024 10:30 PM EDT Patient incontinent of urine. Patient changed into gown and complete bed change done. Yvette Dee RN 05/22/242229 * Yvette Dee RN - 05/22/2024 9:[address] Guzman at bedside. Yvette Dee RN 05/22/242132 * Dinora Ortiz MD - 05/22/2024 8:36 PM EDT EMERGENCY DEPARTMENT ENCOUNTER Pt Name: Augusto Rebolledo Birthdate 2000 Date of evaluation: 05/22/2024 ED Provider: Dinora Ortiz MD CHIEF COMPLAINT Chief Complaint Patient presents with Ingestion Pt sts I feel like I'm going to . Pt sts nothing else and does not respond to stimuli. Girlfriend sts pt took edible mushrooms, ukn how much, approx 1hr ago. HISTORY OF PRESENT ILLNESS (Location/Symptom, Timing/Onset, Context/Setting, Quality, Duration, Modifying Factors, Severity) Note limiting factors. I wore appropriate PPE for the entirety of this encounter. HPI Augusto Rebolledo is a 23 y.o. who presents to the emergency department after eating edible mushrooms. Triage note, patient stated I think I am going to he entered the emergency department. Patient isno longer speaking or responding to stimuli, therefore unable to obtain any further history. Girlfriend is at bedside and states that the mushrooms were likely ingested approximately an hour to an hour and a half prior to arrival. She does not know how much she states she was not there when he ingested, however she notes he ingested prior to picking her up for dinner. Nursing Notes were reviewed. Limitations to history: Intoxication Outside historians: None REVIEW OF SYSTEMS Review of Systems Unable to perform ROS: Other (intoxication, not participating) PAST MEDICAL HISTORY History reviewed. No pertinent past medical history. SURGICAL HISTORY History reviewed. No pertinent surgical history. CURRENT MEDICATIONS Previous Medications No medications on file ALLERGIES Patient has no allergy information on record. FAMILY HISTORY Family History Problem Relation Name Age of Onset No Known Problems Father No Known Problems Mother SOCIAL HISTORY Social History Socioeconomic History Marital status: Single Tobacco Use Smoking status: Never Smokeless tobacco: Never Substance and Sexual Activity Alcohol use: Never SCREENINGS PHYSICAL EXAM ED Triage Vitals [05/22/24 2103] Temp Heart Rate Resp BP 36.8 C (98.2 F) 110 22 (!) 175/95 SpO2 Temp Source Heart Rate Source Patient Position 100 % Axillary Monitor Lying BP Location FiO2 (%) Right arm -- Physical Exam Vitals and nursing note reviewed. Constitutional: Comments: Staring into space, not responding to stimuli HENT: Head: Normocephalic and atraumatic. Nose: Nose normal. Mouth/Throat: Mouth: Mucous membranes are moist. Eyes: Extraocular Movements: Extraocular movements intact. Conjunctiva/sclera: Conjunctivae normal. Right eye: Right conjunctiva is not injected. Left eye: Left conjunctiva is not injected. Comments: Pupils dilated bilaterally Cardiovascular: Rate and Rhythm: Regular rhythm. Tachycardia present. Heart sounds: Normal heart sounds. Pulmonary: Effort: Pulmonary effort is normal. Breath sounds: Normal breath sounds. Abdominal: Palpations: Abdomen is soft. Musculoskeletal: General: Normal range of motion. Cervical back: Normal range of motion. Skin: General: Skin is warm. Neurological: General: No focal deficit present. Mental Status: He is alert. Comments: Unable to fully test neurological status as patient is not responding to stimuli or following commands; he is moving all 4 extremities equally. DIAGNOSTIC RESULTS RADIOLOGY (Per Emergency Physician): Interpretation per the Radiologist below, if available at the time of this note: No orders to display LABS: Labs Reviewed POCT GLUCOSE METER UNSOLICITED RESULTS - Normal Result Value Glucose 96 Narrative: Performed by: [facility], [address] [place] [address] CLIA ID: [id number] All other labs were within normal range or not returned as of this dictation. EMERGENCY DEPARTMENT COURSE and DIFFERENTIAL DIAGNOSIS/MDM: Vitals: Vitals: 05/22/24 2103 05/22/24 2317 BP: (!) 175/95 BP Location: Right arm Patient Position: Lying Pulse: 110 94 Resp: 22 18 Temp: 36.8 C (98.2 F) TempSrc: Axillary SpO2: 100% 100% Weight: 93 kg (205 lb) Height: 1.854 m (6' 1) The patient presented with a chief complaint of mushroom ingestion. POCT glucose obtained due to altered mental status. Was 96. Attempted to give patient IV fluids, however his altered state he was continuing to pull out his IV. Patient was observed in the emergency department for 3 and half hours.He woke up, ambulated to the restroom, tolerated p.o., and is back at baseline mental status. Patient is safe for discharge at this time. Return precautions given to the ED. He expressed understanding and agreement was discharged in stable condition. External records reviewed: none Diagnostics interpreted by me: none Discussions with other clinicians: none Chronic conditions impacting care: none Social determinants of health affecting care: none ED Medications managed: Medications sodium chloride 0.9 % bolus 1,000 mL (0 mL IntraVENous Stopped 05/22/242231) Prescription drugs considered: N/A PROCEDURES: Unless otherwise noted below, none Procedures FINAL IMPRESSION 1. Hallucinogenic mushrooms use disorder, mild (CMS/HCC) (HCC) DISPOSITION Discharge 05/23/2024 12:14:10 AM PATIENT REFERRED TO: No follow-up provider specified. DISCHARGE MEDICATIONS: New Prescriptions No medications on file (Comment: Please note this report has been produced using speech recognition software and may contain errors related to that system including errors in grammar, punctuation, and spelling, as well as words and phrases that may be inappropriate. If there are any questions or concerns please feel freeto contact the dictating provider for clarification.) Dinora Ortiz MD (electronically signed) Emergency Medicine Provider Dinora Ortiz MD Resident 05/23/24 0016 * Renetta Gregory MD - 05/22/2024 8:36 PM EDT Emergency Department Encounter [facility] EMERGENCY DEPT Patient: Augusto Rebolledo : 2000 Date of Evaluation: 05/22/2024 ED Supervising Physician: Renetta Gregory MD I independently examined and evaluated Augusto Rebolledo. In brief, Augusto Rebolledo is a 23 y.o. male with unknown past medical history that presents to the emergency department for evaluation for bizarre behavior. According to girlfriend who is at bedside patient reported taking mushrooms earlier in the evening. She states that the patient increasingly becamelethargic and sleepy. She states the result she brought him to the emergency department for evaluation. Girlfriend states she is not there when he ingested the mushrooms. She notes that he came to [employer] go out after dinner and was intoxicated. Patient states he does not remember what happened to him. He however denies chest pain, shortness of breath, abdominal pain or nausea and vomiting. Patientis hard to arouse and rouses to sternal rubs. When patient however rouses is able to communicate coherently and is alert and oriented x 4. ED Triage Vitals [05/22/24 2103] Temp Heart Rate Resp BP 36.8 C (98.2 F) 110 22 (!) 175/95 SpO2 Temp Source Heart Rate Source Patient Position 100 % Axillary Monitor Lying BP Location FiO2 (%) Right arm -- Focused exam: Efk-pxj-tzrjxmviv in no acute distress. Patient drowsy and hard to arouse but when he arouses he isalert and oriented X 3. Lungs clear to auscultation bilaterally with no wheezes or crackles appreciated. Heart rate and rhythm regular with no murmurs. Abdomen soft nontender nondistended with positive bowel sounds. No edema appreciated on the lower extremities bilaterally. Patient with no suicidalor homicidal ideation. Brief ED course/MDM: No orders to display Labs Reviewed POCT GLUCOSE METER UNSOLICITED RESULTS - Normal Result Value Glucose 96 Narrative: Performed by: [facility], [address] [place], [place] [id number] CLIA ID: [id number] Diagnoses as of 05/23/24 0435 Hallucinogenic mushrooms use disorder, mild (CMS/HCC) (HCC) Patient presenting for evaluation for increased drowsiness after allegedly consuming mushrooms. Given presentation patient received IV fluids in the department. Patient with no hypoglycemia. Patient observed in the department for 4 hours. Apparently for 4 hours patient fully awake alert and oriented. Able to state that he took hallucinogenic mushrooms. Denies any other substance abuse. Patient with no hypoxia. Ambulates without difficulty. Discussed with patient discharge home. Patient withsober ride as girlfriend is still at bedside. Discharged in stable condition for patient follow-up. All diagnostic, treatment, and disposition decisions were made by myself in conjunction with the Resident. I also supervised lopez portions of any procedures performed by the Resident. For all further details of the patient's emergency department visit, please see their documentation. (Please note that portions of this note may have been completed with a voice recognition program. Efforts were made to edit the dictations but occasionally words are mis-transcribed.) MD Renetta Curtis MD 05/23/24 0442 documented in this [facility]07-05-2024 Hospital Discharge instructions* Discharge Instructions* Dinora Ortiz MD - 05/23/2024 12:16 AM EDT Return to the Emergency Department if you experience palpitations, inability to keep down fluids, worsening or uncontrolled pain, confusion, or for any other concerning symptoms. Thank you for choosing us for your care. documented in this [facility]07-05-2024 Emergency department Note* Yvette Dee RN - 05/23/2024 12:02 AM EDT Patient awake and talking to this nurse. Provided gowns. Patient ambulatory to restroom with steadygait. Yvette Dee RN 05/23/24 0003 [id number] Emergency [facility] Note* Yvette Dee RN - 05/22/2024 11:16 PM EDT Patient incontinent of urine again. This RN and Rosy, medic at bedside to change patient. Patient clean and dry. Patient will not remain still to obtain BP. Yvette Dee RN 05/22/24 2317 [id number] Emergency department Note* Yvette Dee RN - 05/22/2024 10:47 PM EDT Patient respirations even and unlabored. No acute distress noted. Side rails up x2 for safety. Visitor at bedside. Yvette Dee RN 05/22/242246 [facility]lp[facility]n10-50-[facility]50 Emergency department Note* Yvette Dee RN - 05/22/2024 10:43 PM EDT Patient pulled IV out. Yvette Dee RN 05/22/242242 [facility]Akiqpr15-93-9499 Emergency department Note* Yvette Dee RN - 05/22/2024 10:40 PM EDT Patient continues to roll around in bed, removing self from monitor and bending arm. IVF unable to infuse d/t patient bending arm. Dr. Ortiz notified. Yvette Dee RN 05/22/242240 [facility] SystemYdovbt46-03-1229 Emergency department Note* Yvette Dee RN - 05/22/2024 10:30 PM EDT Patient incontinent of urine. Patient changed into gown and complete bed change done. Yvette Dee RN 05/22/242229 [facility] SystemPmcfdz21-80-5195 Emergency department Note* Yvette Dee RN - 05/22/2024 9:[address] Guzman at bedside. Yvette Dee RN 05/22/242132 [facility] SystemMhifdi78-88-2098 Physician Emergency department Note* Dinora Ortiz MD - 05/22/2024 8:36 PM EDT EMERGENCY DEPARTMENT ENCOUNTER Pt Name: Augusto Rebolledo Birthdate 2000 Date of evaluation: 05/22/2024 ED Provider: Dinora Ortiz MD CHIEF COMPLAINT Chief Complaint Patient presents with Ingestion Pt sts I feel like I'm going to . Pt sts nothing else and does not respond to stimuli. Girlfriend sts pt took edible mushrooms, ukn how much, approx 1hr ago. HISTORY OF PRESENT ILLNESS (Location/Symptom, Timing/Onset, Context/Setting, Quality, Duration, Modifying Factors, Severity) Note limiting factors. I wore appropriate PPE for the entirety of this encounter. HPI Augusto Rebolledo is a 23 y.o. who presents to the emergency department after eating edible mushrooms. Triage note, patient stated I think I am going to he entered the emergency department. Patient isno longer speaking or responding to stimuli, therefore unable to obtain any further history. Girlfriend is at bedside and states that the mushrooms were likely ingested approximately an hour to an hour and a half prior to arrival. She does not know how much she states she was not there when he ingested, however she notes he ingested prior to picking her up for dinner. Nursing Notes were reviewed. Limitations to history: Intoxication Outside historians: None REVIEW OF SYSTEMS Review of Systems Unable to perform ROS: Other (intoxication, not participating) PAST MEDICAL HISTORY History reviewed. No pertinent past medical history. SURGICAL HISTORY History reviewed. No pertinent surgical history. CURRENT MEDICATIONS Previous Medications No medications on file ALLERGIES Patient has no allergy information on record. FAMILY HISTORY Family History Problem Relation Name Age of Onset No Known Problems Father No Known Problems Mother SOCIAL HISTORY Social History Socioeconomic History Marital status: Single Tobacco Use Smoking status: Never Smokeless tobacco: Never Substance and Sexual Activity Alcohol use: Never SCREENINGS PHYSICAL EXAM ED Triage Vitals [05/22/24 2103] Temp Heart Rate Resp BP 36.8 C (98.2 F) 110 22 (!) 175/95 SpO2 Temp Source Heart Rate Source Patient Position 100 % Axillary Monitor Lying BP Location FiO2 (%) Right arm -- Physical Exam Vitals and nursing note reviewed. Constitutional: Comments: Staring into space, not responding to stimuli HENT: Head: Normocephalic and atraumatic. Nose: Nose normal. Mouth/Throat: Mouth: Mucous membranes are moist. Eyes: Extraocular Movements: Extraocular movements intact. Conjunctiva/sclera: Conjunctivae normal. Right eye: Right conjunctiva is not injected. Left eye: Left conjunctiva is not injected. Comments: Pupils dilated bilaterally Cardiovascular: Rate and Rhythm: Regular rhythm. Tachycardia present. Heart sounds: Normal heart sounds. Pulmonary: Effort: Pulmonary effort is normal. Breath sounds: Normal breath sounds. Abdominal: Palpations: Abdomen is soft. Musculoskeletal: General: Normal range of motion. Cervical back: Normal range of motion. Skin: General: Skin is warm. Neurological: General: No focal deficit present. Mental Status: He is alert. Comments: Unable to fully test neurological status as patient is not responding to stimuli or following commands; he is moving all 4 extremities equally. DIAGNOSTIC RESULTS RADIOLOGY (Per Emergency Physician): Interpretation per the Radiologist below, if available at the time of this note: No orders to display LABS: Labs Reviewed POCT GLUCOSE METER UNSOLICITED RESULTS - Normal Result Value Glucose 96 Narrative: Performed by: [facility], [address] [place] [address] CLIA ID: [id number] All other labs were within normal range or not returned as of this dictation. EMERGENCY DEPARTMENT COURSE and DIFFERENTIAL DIAGNOSIS/MDM: Vitals: Vitals: 05/22/24 2103 05/22/24 2317 BP: (!) 175/95 BP Location: Right arm Patient Position: Lying Pulse: 110 94 Resp: 22 18 Temp: 36.8 C (98.2 F) TempSrc: Axillary SpO2: 100% 100% Weight: 93 kg (205 lb) Height: 1.854 m (6' 1) The patient presented with a chief complaint of mushroom ingestion. POCT glucose obtained due to altered mental status. Was 96. Attempted to give patient IV fluids, however his altered state he was continuing to pull out his IV. Patient was observed in the emergency department for 3 and half hours.He woke up, ambulated to the restroom, tolerated p.o., and is back at baseline mental status. Patient is safe for discharge at this time. Return precautions given to the ED. He expressed understanding and agreement was discharged in stable condition. External records reviewed: none Diagnostics interpreted by me: none Discussions with other clinicians: none Chronic conditions impacting care: none Social determinants of health affecting care: none ED Medications managed: Medications sodium chloride 0.9 % bolus 1,000 mL (0 mL IntraVENous Stopped 05/22/242231) Prescription drugs considered: N/A PROCEDURES: Unless otherwise noted below, none Procedures FINAL IMPRESSION 1. Hallucinogenic mushrooms use disorder, mild (CMS/HCC) (HCC) DISPOSITION Discharge 05/23/2024 12:14:10 AM PATIENT REFERRED TO: No follow-up provider specified. DISCHARGE MEDICATIONS: New Prescriptions No medications on file (Comment: Please note this report has been produced using speech recognition software and may contain errors related to that system including errors in grammar, punctuation, and spelling, as well as words and phrases that may be inappropriate. If there are any questions or concerns please feel freeto contact the dictating provider for clarification.) Dinora Ortiz MD (electronically signed) Emergency Medicine Provider Dinora Ortiz MD Resident 05/23/24 0016 [id number] Physician Emergency department Note* Renetta Gregory MD - 05/22/2024 8:36 PM EDT Emergency Department Encounter [facility] EMERGENCY DEPT Patient: Augusto Rebolledo : 2000 Date of Evaluation: 05/22/2024 ED Supervising Physician: Renetta Gregory MD I independently examined and evaluated Augusto Rebolledo. In brief, Augusto Rebolledo is a 23 y.o. male with unknown past medical history that presents to the emergency department for evaluation for bizarre behavior. According to girlfriend who is at bedside patient reported taking mushrooms earlier in the evening. She states that the patient increasingly becamelethargic and sleepy. She states the result she brought him to the emergency department for evaluation. Girlfriend states she is not there when he ingested the mushrooms. She notes that he came to [employer] go out after dinner and was intoxicated. Patient states he does not remember what happened to him. He however denies chest pain, shortness of breath, abdominal pain or nausea and vomiting. Patientis hard to arouse and rouses to sternal rubs. When patient however rouses is able to communicate coherently and is alert and oriented x 4. ED Triage Vitals [05/22/242102] Temp Heart Rate Resp BP 36.8 C (98.2 F) 110 22 (!) 175/95 SpO2 Temp Source Heart Rate Source Patient Position 100 % Axillary Monitor Lying BP Location FiO2 (%) Right arm -- Focused exam: Maq-ypu-bhniwrmom in no acute distress. Patient drowsy and hard to arouse but when he arouses he isalert and oriented X 3. Lungs clear to auscultation bilaterally with no wheezes or crackles appreciated. Heart rate and rhythm regular with no murmurs. Abdomen soft nontender nondistended with positive bowel sounds. No edema appreciated on the lower extremities bilaterally. Patient with no suicidalor homicidal ideation. Brief ED course/MDM: No orders to display Labs Reviewed POCT GLUCOSE METER UNSOLICITED RESULTS - Normal Result Value Glucose 96 Narrative: Performed by: [facility], [address] [place] [address] CLIA ID: [id number] Diagnoses as of 05/23/24 0435 Hallucinogenic mushrooms use disorder, mild (CMS/HCC) (HCC) Patient presenting for evaluation for increased drowsiness after allegedly consuming mushrooms. Given presentation patient received IV fluids in the department. Patient with no hypoglycemia. Patient observed in the department for 4 hours. Apparently for 4 hours patient fully awake alert and oriented. Able to state that he took hallucinogenic mushrooms. Denies any other substance abuse. Patient with no hypoxia. Ambulates without difficulty. Discussed with patient discharge home. Patient withsober ride as girlfriend is still at bedside. Discharged in stable condition for patient follow-up. All diagnostic, treatment, and disposition decisions were made by myself in conjunction with the Resident. I also supervised lopez portions of any procedures performed by the Resident. For all further details of the patient's emergency department visit, please see their documentation. (Please note that portions of this note may have been completed with a voice recognition program. Efforts were made to edit the dictations but occasionally words are mis-transcribed.) MD Renetta CurtisKinyua, MD 05/23/[address] [facility] [employer] Work Phone: [phone]) 358-377906-19-2023 NoteHNO ID: [id number] Author: RT Navneet(Rajan) Service: Radiology Author Type: Technologist Type: Progress Notes Filed: 05/07/2023 12:15 PM Note Text: Radiology Service Progress Note PATIENT NAME: Augusto Rebolledo DATE OF SERVICE: May 07, 2023 TIME: 12:15 PM PATIENT IDENTITY VERIFICATION COMPLETED USING TWO (2) IDENTIFIERS: Name and Date of confirmed by patient verbally. FALL SCREENING: Has the patient had 2 falls in the last year or 1 fall with injury or currently using an Ambulatory Assistive Device (Walker, Cane, Wheelchair, Crutches, etc.)? No PATIENT GENDER DATA: Male PATIENT RELEVANT IMPLANT DATA REVIEWED: Not Applicable RADIOLOGY DEPARTMENT: General X-ray: Exam(s) Completed: Rib X-Ray: Right PERIPHERAL IV DATA: Not applicable SIGNED BY: RT Navneet(Rajan) May 07, 2023 12:[facility] of Present illness Narrative* Ella Eaton RT(R) - 05/07/2023 2:00 PM EDT Radiology Service Progress Note PATIENT NAME: Augusto Rebolledo DATE OF SERVICE: May 07, 2023 TIME: 12:15 PM PATIENT IDENTITY VERIFICATION COMPLETED USING TWO (2) IDENTIFIERS: Name and Date of confirmedby patient verbally. FALL SCREENING: Has the patient had 2 falls in the last year or 1 fall with injury or currently using an Ambulatory Assistive Device (Walker, Cane, Wheelchair, Crutches, etc.)? No PATIENT GENDER DATA: Male PATIENT RELEVANT IMPLANT DATA REVIEWED: Not Applicable RADIOLOGY DEPARTMENT: General X-ray: Exam(s) Completed: Rib X-Ray: Right PERIPHERAL IV DATA: Not applicable SIGNED BY: RT Navneet(R) May 07, 2023 12:15 PM [facility] History of Present illness Narrative* Juarez Storm MD - 10/09/2021 4:33 PM EST DATE OF SERVICE: 10/06/2021 HISTORY OF PRESENT ILLNESS: A 20-year-old male presenting today with a laceration on the fourth finger of the left hand. He states that he had cut it with a wire while he was at home. His tetanus is not up to date. He denies difficulty bending the finger. Last tetanus unknown. He has no other complaints. ALLERGIES: AMOXICILLIN. PAST MEDICAL HISTORY: Unremarkable. SOCIAL, FAMILY, PAST SURGICAL HISTORY: Reviewed. PHYSICAL EXAMINATION: Blood pressure is 141/84, pulse is 65 respiration is 16 temperature 96.6, pulse oximetry is 99%. Patient is alert, in no acute distress. Head is atraumatic, normocephalic. Neck is supple. Examination of the left fourth finger palmar middle phalanx revealed a 2.5 cm laceration. There is no pulsatile bleed. He has full range of motion at the PIP . Neurovascular status intact distally. Patient consented to the procedure. The area was copiously irrigated under tap water. It was then copiously irrigated also with normal saline, injected with 1% lidocaine without epinephrine. Close examination did not reveal any tendon injury or foreign body. Four sutures placed with 5.0 Ethilon. Patient tolerated the procedure well. Bacitracin ointment applied, covered with sterile dressing. Thorough wound care was discussed with patient. I instructed him to follow-up for signs of infection. IMPRESSION: Laceration of the left fourth finger repaired with 4 sutures. PLAN: Tdap administration, doxycycline provided to prevent infection. Patient to follow-up on the for suture removal. Juarez Storm MD [id number] SSI File#: [id number] END OF DOCUMENT / CHANGE LOG FOLLOWS Last Edited By Elec. Signed By Juarez Storm MD #Juarez Rico MD #[facility]ALA on 10/18/2021 19:31 ET on 10/18/2021 19:31 ET Revision Number - 2 ^^^ Verified/Reviewed by 10/18/211930 [facility] PATIENT NAME: AUGUSTO REBOLLEDO [address] [facility] [address] MEDICAL REC #: [id number] [place] [address] [facility] RE[facility] PHYSICIAN documented in this encounterSt[facility] Hospital Discharge instructions* Instructions* Nan Torres PA - 08/04/2021 Please follow-up with opthalmology. Please return to the emergency room for new or worsening symptoms * Attachments The following attachments cannot be sent through Care Everywhere. * Corneal Scratches ([place]) [facility] Work Phone: Consult note* Clinical Note Date No Information [facility] Work Phone: Discharge summary* Clinical Note Date No Information [facility] Work Phone: Evaluation note* Diagnosis Abrasion of right cornea, initial encounter- Primary documented in this encounter [facility] Work Phone: Evaluation note* Diagnosis Contusion of right front wall of thorax, initial encounter- Primary Contusion of right knee, initial encounter Contusion of right hip, initial encounter documented in this encounter [facility] note* Diagnosis Contusion of right front wall of thorax, initial encounter Contusion of right knee, initial encounter Contusion of right hip, initial encounter documented in this encounter [facility] note* Diagnosis Cervicalgia Pain in thoracic spine Myalgia, other site documented in this encounter [facility] note* Diagnosis Hallucinogenic mushrooms use disorder, mild (CMS/HCC) (HCC)- Primary documented in this encounter [facility] note* Diagnosis Contusion of front wall of thorax, initial encounter [facility] Clinical Note Date No Information [facility] Work Phone: Progress note* Clinical Note Date No Information [facility] Work Phone: Reason for referral (narrative)* Diagnostic Procedure Only (Routine) - Pending Review Specialty Diagnoses / Procedures Referred By Contac t Referred To Contact XR IMAGING Diagnoses Contusion of front wall of thorax, initial encounter Procedures XR RIBS/CHEST 3V AP RIB/OBLS/CXR RIGHT RADEX RIBS UNI W/POSTEROANT CH MINIMUM 3 VIEWS Eladia Soliz PA-C [address] [place] [address] [place] [address] Referral ID Status Reason Start Date Expiration Date Visits Requested Visits Authorized [id number] Pending Review Auto-Generate d Referral Clearance Not Met -Financial Clearance Bypassed 05/07/2023 06/05/2024 1 1 [facility] for referral (narrative)* Diagnostic Procedure Only (Routine) - Closed Specialty Diagnoses / Procedures Referred By Contac t Referred To Contact XR IMAGING Diagnoses Contusion of front wall of thorax, initial encounter Procedures XR RIBS/CHEST 3V AP RIB/OBLS/CXR RIGHT RADEX RIBS UNI W/POSTEROANT CH MINIMUM 3 VIEWS Eladia Soliz PA-C [address] [place] [address] [place] [address] Referral ID Status Reason Start Date Expiration Date V isits Requested Visits Authorized [id number] Closed Auto-Generated Referral Clearance Not Met -Financial Clearance Bypassed 05/07/2023 06/05/[address] Reason For Referral No Information [facility] Work Phone: Reason for visit Narrative* Diagnostic Procedure Only (Routine) - Closed Specialty Diagnoses / Procedures Referred By Светлана t Referred To Contact XR IMAGING Diagnoses Contusion of front wall of thorax, initial encounter Procedures XR RIBS/CHEST 3V AP RIB/OBLS/CXR RIGHT RADEX RIBS UNI W/POSTEROANT CH MINIMUM 3 VIEWS Eladia Soliz PA-C [address] [place] [address] [place] [address] Referral ID Status Reason Start Date Expiration Date V isits Requested Visits Authorized [id number] Closed Auto-Generated Referral Clearance Not Met -Financial Clearance Bypassed 05/07/2023 06/05/[address] [facility] Summary Purpose Family History Family Member Type Diagnosis Age At Onset Problem No family history of Cardiov ascular disease Problem No family history of Hyperte nsion Maternal grandmother Problem Leukemia Problem No family history of Diabete s mellitus Problem No family history of Retinal disease Problem No family history of Catarac ts Problem No family history of Macular degeneration Problem No family history of Glaucom a Advance Directives Documents on File Type Date Recorded Patient Breakfast Host Expl anation Advance Directive(s) 04/01/2022 11:10 AM Advance Directive(s) 11/25/2019 12:23 PM Advance Directive(s) 06/13/2019 8:40 AM Directive Yes / No Effective Date File Name No Information Chief Complaint and Reason for Visit From encounter dated '02/16/2025 11:05'. ER follow up foreign body (chief complaint). Description: The 24 year old patient presents for ER follow up foreign body in the left eye. Patient was seen in the ER 2 days ago. They were unable to remove the foreign body. The condition is described as redness, eye pain, difficulty keeping eye open,light sensitivity. Patient was given EES olga to use 4 times a day. Patient does not remember getting anything in his eye. foreign body (chief complaint) Additional Source Comments (unrecognized sect ion and content) No Status Records FoundNo Status Records FoundNo Status Records FoundNo Status Records FoundNo Status Records FoundNo Status Records FoundNo Status Records FoundNo Status Records Found INFORMATION SOURCE (unrecogn ized section and content) DATE CREATED AUTHOR 08/21/[address] [facility] DATE CREATED AUTHOR AUTHOR'S ORGANIZ ATION 11/30/2019 [facility] DATE CREATED AUTHOR AUTHOR'S ORGANIZ ATION 10/20/2021 [facility] [place] DATE CREATED AUTHOR AUTHOR'S ORGANIZ ATION 05/16/2023 [facility] ([place]) DATE CREATED AUTHOR AUTHOR'S ORGANIZ ATION 07/26/2023 [facility] DATE CREATED AUTHOR AUTHOR'S ORGANIZ ATION 05/23/2024 [facility] DATE CREATED AUTHOR AUTHOR'S ORGANIZ ATION 02/15/2025 [facility] DATE CREATED AUTHOR AUTHOR'S ORGANIZ ATION 02/21/2025 [facility] Reason for Visit (unrecogniz ed section and content) Reason Comments Eye Pain RIGHT Reason Comments Fall Reason Comments Knee Pain Pain Specialty Diagnoses / Procedures Referred By Светлана siu Referred To Contact OCCUPATIONAL MEDICINE Diagnoses Broken ribs Procedures OFFICE VISIT, NEW PT., LEVEL 1 TC Eladia Soliz PA-C [address] [place] [id number] [address] [address] Referral ID Status Reason Start Date Expiration Date V isits Requested Visits Authorized [id number] Closed OON/Self Pay Override 05/02/2023 06/01/2023 1 1 Reason Comments Ingestion Pt sts I feel like I'm going to . Pt sts nothing else and does not respond to stimuli. Girlfriend sts pt took edible mushrooms, ukn how much, approx 1hr ago. Ordered Prescriptions (unrec ognized section and content) Prescription Sig Dispensed Refills Start Date End Da te erythromycin (ROMYCIN) 5 MG/GM ophthalmic ointment Please apply 1/4inch strip to eye four times a day for 5 days to right eye 1 each 0 08/04/2021 08/14/2021 Scheduled Active and Recently Administ ered Medications (unrecognized section and content) Medication Order 08/02/2021 08/03/2021 08/04/2021 erythromycin (ROMYCIN) ophthalmic ointment (COMPLETED) Right Eye, ONCE, On Maureen 08/04/21 at 2100, For 1 dose 2052 (Given - Provid er: Jason Lange, RN) fluorescein ophthalmic strip 1 mg (COMPLETED) 1 mg (1 strip), Right Eye, ONCE, On Maureen 08/04/21 at 1930, For 1 dose, 1 mg = 1 strip 2042 (Given - Provid er: Jason Lange, RN) tetracaine (TETRAVISC) 0.5 % ophthalmic solution 2 drop (COMPLETED) 2 drop, Right Eye, ONCE, On Maureen 08/04/21 at 1930, For 1 dose, To provider please. Thanks. 2041 (Given - Provid er: Jason Lange, TAISHA) Scheduled Medication Order 05/21/2024 05/22/2024 05/23/2024 sodium chloride 0.9 % bolus 1,000 mL (COMPLETED) 1,000 mL, IntraVENous, at 1,000 mL/hr, Administer over 1 Hours, Once, On Maureen 05/22/24 at 2125, For 1 dose 2131 (New Bag - Provider: More Dee RN)2231 (Stopped - Provider: Yvette Dee RN - Comment: IVF did not finish, patient continues to bend arm then pulled IV out) Source Comments (unrecognize d section and content) In the event this informatio n is protected by the Federal Confidentiality of Alcohol and Drug Abuse Patient Records regulations: The Federal rules restrict any use of the information to criminally investigate or prosecute any alcohol or drug abuse patient.[facility] the event this information is protected by the Federal Confidentiality of Alcohol and Drug Abuse Patient Records regulations: The Federal rules restrict any use of the information to criminally investigate or prosecute any alcohol or drug abuse patient.[facility] the event this information is protected by the Federal Confidentiality of Alcohol and Drug Abuse Patient Records regulations: The Federal rules restrict any use of the information to criminally investigate or prosecute any alcohol or drug abuse patient.[facility] the event this information is protected by the Federal Confidentiality of Alcohol and Drug Abuse Patient Records regulations: The Federal rules restrict any use of the information to criminally investigate or prosecute any alcohol or drug abuse patient.[facility] FOR RECORDS PERTAINING TO PATIENTS WHO ARE OR HAVE BEEN ENROLLED IN A CHEMICAL DEPENDENCY/SUBSTANCEABUSE PROGRAM, SOME INFORMATION MAY BE OMITTED. This clinical summary was aggregated from multiple sources. Caution should be exercised in using it in the provision of clinical care. This summary normalizes information from multiple sources, and as a consequence, information in this document may materially change the coding, format and clinical context of patient data. In addition, data may be omitted in some cases. CLINICAL DECISIONS SHOULD BE BASED ON THE PRIMARY CLINICAL RECORDS. [facility]. provides no warranty or guarantee of the accuracy or completeness of information in this document.
--- NOTE | 2025-06-28 17:20 | RAD_ITS ---
PROCEDURE: CERV SPINE 2 OR 3 VIEWS 06/28/2025 REASON FOR EXAM: INJURY/PAIN TECHNIQUE: CERV SPINE 2 OR 3 VIEWS COMPARISON: None. FINDINGS: Vertebrae: The vertebral body heights are maintained. No acute fracture. Disc spaces: The disc spaces are maintained. Alignment: There is straightening of the normal cervical lordosis. No traumatic listhesis. Soft tissues: No subcutaneous gas or large laceration. Other: The bilateral upper apices are unremarkable. RAD/Cerv Spine 2 or 3 Views IMPRESSION: NEGATIVE CERVICAL SPINE. Reading Location: [id number]
[2025-06-28 18:38] VITALS: BP 131/80; PULSE 65; RESP 17; TEMP 36.8; O2SAT 100
== END 2025-06-28 18:39 | disposition home or self-care (01) ==
PROVIDERS: Emergency Provider Emergency Medicine; Referring Provider Emergency Medicine; Visit Provider Emergency Medicine
DX: S16.1XXA Strain of muscle, fascia and tendon at neck level, initial encounter (principal); F17.210 Nicotine dependence, cigarettes, uncomplicated; X58.XXXA Exposure to other specified factors, initial encounter
CPT/HCPCS: 72040; 99282